=== PATIENT | male | born 1955 | race African-American/Black ===

== ENCOUNTER 2016-07-31 16:21 | Emergency (ER) | payer MEDICAID ==
[~2016-07-31] VITALS: Ht 188 cm; Wt 77.1 kg
[~2016-07-31 16:21] MED LIST: ADVAIR 100-501 EACH INH; ALBUTEROL SULF8.5 GM INH; ALBUTEROL2.5 MG/3 M HHN; AZITHROMYCIN250 MG ORAL; CEPHALEXIN500 MG PO; DILAUDID4 MG PO; IBUPROFEN600 MG PO; METHADONE HCL10 MG PO; NORCO 10-325 T1 EACH PO; NORCO 5-325 TA1 EACH ORAL; PERCOCET 5-3251 EACH ORAL; PREDNISONE20 MG ORAL; ROBITUSSIN DM5 ML ORAL; SOMA350 MG PO
[2016-07-31 16:45] VITALS: BP 123/74
[2016-07-31] MEDS ORDERED: Ketorolac 30mg Inj IM ONE (17:00)
--- NOTE | 2016-07-31 18:06 | Emergency Room Report ---
History of Present Illness General Chief Complaint: Multiple Trauma/Fall Source: Patient Present Illness HPI Patient is a 61-year-old male who presented after a fall. Patient gradual onset of symptoms. Patient reportedly fell from standing onto his buttocks. Patient reported having increased pain to his lower back. The patient reports having prior history of hip replacement. Allergies: Coded Allergies: No Known Allergies (Unverified , 01/26/12) Patient History Past Medical History: see triage record Reviewed Nursing Documentation: PMH: Agreed, PSxH: Agreed Nursing Documentation-PMH Past Medical History: No History, Except For Hx Asthma: Yes Hx COPD: Yes Hx Neurological Problems: Yes Hx Cerebrovascular Accident: No - LAMINECTOMY AT L5, AVASCULAR NECROSIS R HIP Review of Systems All Other Systems: negative except mentioned in HPI Physical Exam Vital Signs Date Time Temp Pulse Resp B/P Pulse Ox O2 Delivery O2 Flow Rate FiO2 07/31/16 16:31 97.7 93 16 123/74 97 Room Air General Appearance: well appearing, no apparent distress, alert, GCS 15 Head: normocephalic, atraumatic ENT: hearing grossly normal, normal voice Neck: full range of motion, supple Respiratory: no respiratory distress, speaking full sentences Cardiovascular #1: normal inspection, normal peripheral pulses Gastrointestinal: normal inspection, non tender Musculoskeletal: no calf tenderness, decreased range of mation Neurologic: alert, oriented x3, normal gait Psychiatric: mood/affect normal Skin: no rash Medical Decision Making Diagnostic Impression: Primary Impression: Chronic pain Additional Impressions: Low back pain Contusion of soft tissue ER Course Patient presented for low back pain.Differential diagnosis included but was not limited to herniated disc, cauda equina syndrome, abdominal aortic aneurysm, perforated ulcer, spinal epidural abscess, spinal stenosis, lumbar fracture, metastatic lesion, pyelonephritis. Because of complexity of patient's case laboratory testing and imaging studies were ordered. A CT imaging of the lumbar spine was ordered due to patient's recent trauma. Patient was noted to have degenerative changes to his lower back after radiology reading. Patient was given Toradol for pain. The patient is advised to follow up with primary care doctor in 1-2 days. Patient is advised to return if any worsening condition or if any changes in status that are concerning. Last Vital Signs Date Time Temp Pulse Resp B/P Pulse Ox O2 Delivery O2 Flow Rate FiO2 07/31/16 17:57 97.7 07/31/16 16:45 88 16 123/74 97 Room Air Status: improved Disposition: HOME, SELF-CARE Condition: Stable Scripts Meloxicam* (MELOXICAM*) 7.5 Mg Tablet 7.5 MG PO DAILY, #20 TAB Prov: Julio Cesar Estrella 07/31/16 Referrals: [facility],REFERRING (PCP) Julio Cesar Estrella Jul 31, 2016 18:06
[2016-07-31] MEDS ORDERED: MELOXICAM7.5 MG PO (18:30)
[2016-07-31 18:44] VITALS: BP 117/72
[2016-07-31 18:48] VITALS: BP 117/72
--- NOTE | 2016-08-01 10:40 | Diagnostic Imaging Report ---
Indications: Low back pain Technique: Continuous helical CT imaging of the abdomen, pelvis, and both lower extremities was performed with automatic exposure control, following bolus intravenous administration of nonionic iodine contrast, on a Siemens sensation [address] scanner. Axial images reconstructed and 5 mm slice thickness and interval. Thin section axial data set was reconstructed at 1 mm slice thickness and 0.7 mm interval, from which three-dimensional maximum intensity projection and volume rendered images were reconstructed on a stand alone workstation. CTDI volume(s): 13 mGy Total DLP: 362 mGy-cm Findings: Comparison: 09/24/2015 The T12-L1 through L5-S1 intervertebral disc spaces all again demonstrate varying degrees of narrowing, vacuum phenomenon, endplate irregularities with erosions, and subchondral sclerosis. These changes appear more severe at the L1-2 level than on previous exam; all other levels appear substantially unchanged. Mygv-[id number] levoscoliosis with rotatory component, multilevel facet sclerosis and hypertrophy unchanged. Left hemilaminectomy defect at L3, spinal stenosis at L3-4 unchanged. Multilevel neural foraminal narrowing unchanged. No new abnormalities are identified. IMPRESSION: Mallory lumbar degenerative disc disease with prominent endplate erosive changes, apparently progressive at L1-2 compared previous exam, otherwise unchanged. Superimposed chronic infectious spondylo-discitis not excludable. Multilevel facet degenerative arthropathy, unchanged L3-4 spinal stenosis, multilevel neural foraminal narrowing, unchanged. Nerve root impingement must be considered. Scoliosis, unchanged Previous left hemilaminectomy L3 This correlates with [facility] preliminary report.
== END 2016-07-31 18:48 | disposition home or self-care (01) ==
LOC: EMR 17:21
DX: M54.5 Low back pain (principal); G89.29 Other chronic pain; S30.0XXA Contusion of lower back and pelvis, initial encounter; W19.XXXA Unspecified fall, initial encounter; Y93.9 Activity, unspecified; Y92.9 Unspecified place or not applicable; J44.9 Chronic obstructive pulmonary disease, unspecified; J45.909 Unspecified asthma, uncomplicated; Z96.649 Presence of unspecified artificial hip joint; M41.9 Scoliosis, unspecified; M48.06 Spinal stenosis, lumbar region; M51.36 Other intervertebral disc degeneration, lumbar region
CPT/HCPCS: 72131; 96372; 99283; J1885

== ENCOUNTER 2016-09-03 19:22 | Emergency (ER) | payer MEDICAID ==
[~2016-09-03] VITALS: Ht 190.5 cm; Wt 74.8 kg
[~2016-09-03 19:22] MED LIST changes: +MELOXICAM7.5 MG PO
[2016-09-03 20:15] VITALS: BP 123/73
[2016-09-03] MEDS ORDERED: Ketorolac 60mg Inj IM ONE (20:30)
[2016-09-03] MEDS ORDERED: Norco 10mg/325mg tab ORAL ONE (20:30)
[2016-09-03] MEDS ORDERED: AMOXICILLIN500 MG ORAL (20:31)
[2016-09-03 21:05] VITALS: BP 118/69
--- NOTE | 2016-09-05 01:14 | Emergency Room Report ---
History of Present Illness General Chief Complaint: Pain Source: Patient Present Illness HPI Patient presents with complaints of hip and back pain Patient reports that he did not receive his pain medication In the next time he will see his physician is in 3 weeks Denies any chest pain or shortness of breath Denies any acute fall Denies any vomiting or diarrhea Pain is 5/10 Bilateral lower back region Pelvic area Allergies: Coded Allergies: No Known Allergies (Unverified , 01/26/12) Patient History Past Medical History: see triage record Pertinent Family History: none Reviewed Nursing Documentation: PMH: Agreed, PSxH: Agreed Nursing Documentation-PMH Hx Asthma: Yes Hx COPD: Yes Hx Neurological Problems: Yes Hx Cerebrovascular Accident: No - LAMINECTOMY AT L5, AVASCULAR NECROSIS R HIP Review of Systems All Other Systems: negative except mentioned in HPI Physical Exam Vital Signs Date Time Temp Pulse Resp B/P Pulse Ox O2 Delivery O2 Flow Rate FiO2 09/03/16 20:07 97.9 60 18 123/73 94 Room Air Sp02 EP Interpretation: reviewed, normal General Appearance: well appearing, no apparent distress Head: normocephalic, atraumatic Eyes: bilateral eye EOMI, bilateral eye PERRL ENT: normal pharynx, no angioedema, other - poor dentition Neck: supple, thyroid normal Respiratory: lungs clear Cardiovascular #1: regular rate, rhythm, no edema Gastrointestinal: non tender, soft Genitourinary: no CVA tenderness Musculoskeletal: other - Patient ambulate with a walker no obvious focal deficit tender on palpation paraspinal L3-4-5 no midline step-offs, Neurologic: alert, oriented x3, responsive Skin: normal color, no rash Medical Decision Making Diagnostic Impression: Primary Impression: back pain Additional Impression: Opiate dependence ER Course On review of cures, patient appears to have pain management coverage is receiving large dosages of opiate medications This was discussed with some and the need for close outpatient followup Patient's pain was treated here in the emergency room However given the safety and prescribing medication campaigns patient was recommended to follow up closely Patient has had recent imaging and has not had any falls since then Last Vital Signs Date Time Temp Pulse Resp B/P Pulse Ox O2 Delivery O2 Flow Rate FiO2 09/03/16 21:05 97.9 67 19 118/69 96 Room Air Status: improved Disposition: HOME, SELF-CARE Condition: Improved Scripts Amoxicillin* (AMOXIL*) 500 Mg Capsule 500 MG ORAL THREE TIMES A DAY, #21 CAP Prov: KADE KNOX D.O. 09/03/16 Referrals: [facility],REFERRING (PCP) Patient Instructions: Back Pain, Adult, [id number] Additional Instructions: Patient is provided with the discharge instructions notified to follow up with primary doctor in the next 2-3 days otherwise return to the er with any worsening symptoms. Please note that this report is being documented using [employer] technology. This can lead to erroneous entry secondary to incorrect interpretation by the dictating instrument. KADE KNOX D.O. September 05, 2016 01:14
== END 2016-09-03 21:05 | disposition home or self-care (01) ==
LOC: EMR 20:20
DX: M54.5 Low back pain (principal); F11.20 Opioid dependence, uncomplicated; M87.88 Other osteonecrosis, other site; J44.9 Chronic obstructive pulmonary disease, unspecified
CPT/HCPCS: 96372; 99283

== ENCOUNTER 2018-08-18 16:39 | Emergency (ER) | payer MEDICAID ==
[~2018-08-18] VITALS: Ht 182.9 cm; Wt 79.4 kg
[~2018-08-18 16:39] MED LIST changes: +AMOXICILLIN500 MG ORAL
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
[2018-08-18] MEDS ORDERED: CHLORHEXIDINE473 ML MM (17:45)
[2018-08-18] MEDS ORDERED: AMOX TR-K CLV1 EAC1 ORAL (17:45)
[2018-08-18] MEDS ORDERED: GABAPENTIN400 MG ORAL (17:45)
[2018-08-18 17:56] VITALS: BP 123/86
== END 2018-08-18 17:57 | disposition home or self-care (01) ==
LOC: EMR 17:18
DX: M25.571 Pain in right ankle and joints of right foot (principal); K04.7 Periapical abscess without sinus; G62.9 Polyneuropathy, unspecified; J44.9 Chronic obstructive pulmonary disease, unspecified
CPT/HCPCS: 99282